=== PATIENT | female | born 1980 | race African-American/Black ===

== ENCOUNTER 2017-11-06 17:16 | Emergency (ER) | payer SELFPAY ==
--- OUTSIDE RECORDS SUMMARY | 2017-11-06 17:17 | XMS REPORT ---
:1980 [facility] Address [address] [place] [address] Care Team Providers Name Role Phone UNKNOWN, REFFERING Primary Care Provider Unavailable Problems This patient has no known problems. Allergies, Adverse Reactions, Alerts This patient has no known allergies or adverse reactions. Medications This patient has no known medications. Encounters Start End Encounter Admission Attending Care Care Encounter Date/Time Date/Time Type Type Clinicians Facility Department ID 2017-02-[address] [facility] MED [id number] 20:16:00
[2017-11-06 18:36] LABS: Potassium 3.5 mEq/L (3.6-5.0); Protime INR 0.97
[2017-11-06 18:38] LABS: Absolute Lymphocytes (CBC) 1.4 K/uL (0.7-4.9); Absolute Monocytes 1.2 K/uL (0.1-1.3); Absolute Neutrophil 5.2 K/uL (1.8-8.0); Basophils % 0.8 % (0-1.3); Eosinophils % 9.2 % (0-4.4); Hematocrit 36.8 % (36.0-45.0); MCV 78.7 fL (80-100); MPV 8.4 fL (7.6-11.3); Monocytes % 13.5 % (3.3-12.3); RBC Red Blood Cell Count 4.68 M/uL (3.86-4.86)
--- NOTE | 2017-11-06 19:04 | RAD REPORT ---
EXAM DESCRIPTION: RAD - Chest Single View - 11/06/2017 6:30 pm CLINICAL HISTORY: Chest pain COMPARISON: June 2017 TECHNIQUE: AP portable chest image was obtained 1826 hours . FINDINGS: Lungs are clear. Heart and vasculature are normal. No measurable pleural effusion and no p neumothorax. No gross bony abnormality seen. No acute aortic findings suspected. IMPRESSION: No acute cardiopulmonary process. No significant change from comparison.
[2017-11-06 19:16] LABS: Urine Blood NEGATIVE (NEG); Urine Glucose NEGATIVE (NEG); Urine Protein 1+ (NEG)
--- NOTE | 2017-11-06 20:08 | EKG ---
Test Date: 2017-11-06 Test Time: 18:57:08 Human Resources Executive Assistant: TEDDY MEASUREMENT RESULTS: Intervals: Rate: 93 NH: 178 QRSD: 90 QT: 374 QTc: 465 [place]: P: 58 NH: 178 QRS: 49 T: 37 INTERPRETIVE STATEMENTS: Normal sinus rhythm Normal ECG Compared to ECG 06/03/2017 22:42:38 No significant changes Electronically Signed On 11-06-17 20:07:39 CDT by Jorge Harden
[2017-11-06] MEDS ORDERED: KETOROLAC 30 MG/ML INJ ONE (20:36)
--- NOTE | 2017-11-06 20:49 | RAD REPORT ---
EXAM DESCRIPTION: VAS - Extrem Venous W Compress Germán - 11/06/2017 8:23 pm CLINICAL HISTORY: Leg pain and swelling COMPARISON: None. TECHNIQUE: Real-time sonographic evaluation of the bilateral lower extremity deep venous systems was performed. FINDINGS: Normal compressibility, flow augmentation, phasic flow and spontaneous flow are identified in the left and right lower extremity deep venous systems. No intraluminal filling defects seen. IMPRESSION: No DVT in either lower extremity.
--- NOTE | 2017-11-06 20:52 | EDPHYS ---
Physician Documentation [facility] Name: Nya Keller Age: 37 yrs Sex: Female : 1980 Arrival Date: 11/06/2017 Time: 17:19 Bed 20 Private MD: ED Physician Trent Mike HPI: 11/06 19:00 This 37 yrs old Black Female presents to ER via Ambulatory with complaints of Right Leg pm1 Pain and Swelling. 19:00 The patient presents with pain, that is acute. The complaints affect the right pm1 quadriceps. Context: The problem was sustained at home, resulted from an unknown cause, the patient can fully bear weight, the patient is able to ambulate, Problem is a result from a previous injury: No. Onset: The symptoms/episode began/occurred today. Modifying factors: The symptoms are alleviated by nothing. the symptoms are aggravated by movement, Palpation. Associated signs and symptoms: Pertinent negatives. Treatment prior to arrival includes: no previous treatment. Severity of symptoms: in the emergency department the symptoms are unchanged. The patient has not recently seen a physician. Patient presenting today with complaint of right thigh pain that started this morning along with bilateral lower extremity swelling. Patient currently taking HCTZ for her pedal edema but states that it was well controlled until this morning when she woke up with the right thigh pain and bilateral lower extremity swelling. Patient reports "a little bit of chest pain and shortness of breath" that started this morning also. 19:00 Has a history of chronic back pain. At onset of right thigh pain she had her chronic pm1 back pain flare up. Lower back pain has resolved but right thigh pain present. 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 - Social history:: Smoking status: Patient/guardian denies using tobacco. ROS: 19:00 Constitutional: Negative for fever, chills, and weight loss, Eyes: Negative for injury, pm1 pain, redness, and discharge, ENT: Negative for injury, pain, and discharge, Neck: Negative for injury, pain, and swelling, Abdomen/GI: Negative for abdominal pain, nausea, vomiting, diarrhea, and constipation, Back: Negative for injury and pain, : Negative for injury, bleeding, discharge, and swelling, MS/Extremity: Negative for injury and deformity, Skin: Negative for injury, rash, and discoloration. 19:00 Cardiovascular: Positive for chest pain, edema, Negative for palpitations. 19:00 Respiratory: Positive for shortness of breath, Negative for cough. Exam: 19:06 Constitutional: This is a well developed, well nourished patient who is awake, alert, pm1 and in no acute distress. Head/Face: Normocephalic, atraumatic. Eyes: Pupils equal round and reactive to light, extra-ocular motions intact. Lids and lashes normal. Conjunctiva and sclera are non-icteric and not injected. Cornea within normal limits. Periorbital areas with no swelling, redness, or edema. Neck: Trachea midline, no thyromegaly or masses palpated, and no cervical lymphadenopathy. Supple, full range of motion without nuchal rigidity, or vertebral point tenderness. No Meningismus. 19:06 Respiratory: Lungs have equal breath sounds bilaterally, clear to auscultation and percussion. No rales, rhonchi or wheezes noted. No increased work of breathing, no retractions or nasal flaring. 19:06 Back: No spinal tenderness. No costovertebral tenderness. Full range of motion. Skin: Warm, dry with normal turgor. Normal color with no rashes, no lesions, and no evidence of cellulitis. 19:06 Chest/axilla: Inspection: normal, Palpation: crepitus, is not appreciated, tenderness, that is mild, of the anterior aspect of left upper chest, that totally reproduces the patient's complaints. 19:06 Cardiovascular: Rate: normal, Rhythm: regular, Edema: pedal edema, that is mild. 19:06 Musculoskeletal/extremity: Extremities: grossly normal except: noted in the lateral aspect of right thigh: tenderness, There is no evidence of decreased ROM, deformity, ROM: no acute changes, Circulation is intact in all extremities. 19:06 Neuro: Orientation: is normal, Motor: is normal, moves all fours, Sensation: is normal, no obvious gross deficits. Vital Signs: 17:41 BP 112 / 89; Pulse 99; Resp 18; Temp 97.8; Pulse Ox 98% on R/A; Weight 149.69 kg; ph Height 5 ft. 7 in. (170.18 cm); Pain 10/10; 18:47 BP 117 / 96; Pulse 92; Resp 14; Pulse Ox 97% on R/A; aj1 20:03 BP 130 / 96; Pulse 90; Resp 18; Pulse Ox 97% on R/A; aj1 21:20 BP 107 / 83; Pulse 95; Resp 18; Pulse Ox 99% ; aj1 17:41 Body Mass Index 51.68 (149.69 kg, 170.18 cm) ph MDM: 17:41 Patient medically screened. pm1 19:09 Data reviewed: vital signs. Data interpreted: Pulse oximetry: on room air is 97 %. pm1 Interpretation: normal. 20:50 Counseling: I had a detailed discussion with the patient and/or guardian regarding: the pm1 historical points, exam findings, and any diagnostic results supporting the discharge/admit diagnosis, lab results, radiology results, the need for outpatient follow up, to return to the emergency department if symptoms worsen or persist or if there are any questions or concerns that arise at home. 11/06 17:58 Order name: Basic Metabolic Panel pm1 11/06 17:58 Order name: BNP pm1 11/06 17:58 Order name: CBC with Diff pm1 11/06 17:58 Order name: PT-INR pm1 11/06 17:58 Order name: Ptt, Activated pm1 11/06 17:58 Order name: Troponin (emerg Dept Use Only) pm1 11/06 18:36 Order name: Basic Metabolic Panel; Complete Time: 19:27 EDMS 11/06 18:43 Order name: Protime (+INR); Complete Time: 19:27 EDMS 11/06 18:43 Order name: PTT, Activated Partial Thromb; Complete Time: 19:27 EDMS 11/06 18:44 Order name: CBC with Automated Diff; Complete Time: 19:27 EDMS 11/06 18:45 Order name: Troponin (Emerg Dept Use Only); Complete Time: 19:27 EDMS 11/06 18:47 Order name: Urine Dipstick--Ancillary (enter results) bd 11/06 18:47 Order name: Urine --Ancillary (enter results) bd 11/06 19:10 Order name: BNP B-Type Natriuretic Peptide; Complete Time: 19:27 EDMS 11/06 17:58 Order name: XRAY Chest (1 view) pm11/06 17:58 Order name: EKG; Complete Time: 17:59 pm1 11/06 17:58 Order name: Cardiac monitoring; Complete Time: 18:55 pm1 11/06 17:58 Order name: EKG - Nurse/Tech; Complete Time: 18:55 pm1 11/06 17:58 Order name: IV Saline Lock; Complete Time: 18:10 pm1 11/06 17:58 Order name: Labs collected and sent; Complete Time: 18:10 pm1 11/06 17:58 Order name: O2 Per Protocol; Complete Time: 18:55 pm1 11/06 17:59 Order name: O2 Sat Monitoring; Complete Time: 18:55 pm1 11/06 17:59 Order name: Urine Dipstick-Ancillary (obtain specimen); Complete Time: 18:55 pm1 11/06 17:59 Order name: US Extrem Venous W Compression Germán pm1 11/06 19:04 Order name: RAD; Complete Time: 19:27 EDMS 11/06 19:16 Order name: Urine --Ancillary; Complete Time: 19:27 EDMS 11/06 19:16 Order name: Urine Dipstick-Ancillary; Complete Time: 19:27 EDMS 11/06 20:49 Order name: VAS; Complete Time: 20:53 EDMS Administered Medications: 20:29 Drug: TORadol 30 mg Route: IVP; Site: right forearm; aj1 21:22 Follow up: Response: No adverse reaction aj1 Disposition: 11/06/17 20:51 Discharged to Home. Impression: Chest pain, unspecified, Edema, unspecified - bilateral lower extremity, Low back pain. - Condition is Stable. - Discharge Instructions: Back Pain, Adult, Nonspecific Chest Pain, Edema. - Prescriptions for Tylenol- Codeine #3 300-30 mg Oral Tablet - take 1 tablet by ORAL route every 6 hours As needed; 12 tablet. - Work release form, Medication Reconciliation Form, Thank You Letter form. - Follow up: Emergency Department; When: As needed; Reason: Worsening of condition. Follow up: Private Physician; When: 2 - 3 days; Reason: Recheck today's complaints, Continuance of care, Re-evaluation by your physician. - Problem is new. - Symptoms have improved. Addendum: 11/10/2017 07:28 Co-signature as Attending Physician, Trent Mike MD. [place] Signatures: Dispatcher [employer] Sabina Weaver RN RN aj1 Lorena Rollins RN RN Colin Becerra, AIRCRAFT RIVETER AIRCRAFT RIVETER pm1 Trent Mike MD MD
--- NOTE | 2017-11-06 20:52 | ER ---
Nurse's Notes [facility] Name: Nya Keller Age: 37 yrs Sex: Female : 1980 Arrival Date: 11/06/2017 Time: 17:19 Bed 20 Private MD: Diagnosis: Chest pain, unspecified;Edema, unspecified-bilateral lower extremity;Low back pain Presentation: 11/06 17:37 Presenting complaint: Patient states: " I have had some swelling in both of my legs and ph I have a spot that is numb. I also have had a little bit of chest pain." Edema noted to tamie calves, pt reports numbness in R outer thigh and pain in R leg. Also reports SOB. Transition of care: patient was not received from another setting of care. Onset of symptoms was November 06, 2017. Care prior to arrival: None. 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 - Social history:: Smoking status: Patient/guardian denies using tobacco. Screenin:49 Abuse screen: Denies threats or abuse. Denies injuries from another. Nutritional aj1 screening: No deficits noted. Tuberculosis screening: No symptoms or risk factors identified. 21:21 Fall Risk None identified. aj1 Assessment: 17:49 General: Appears in no apparent distress. uncomfortable, Behavior is calm, cooperative, aj1 appropriate for age. Pain: Complains of pain in lateral aspect of right thigh Pain radiates to right leg Pain currently is 10 out of 10 on a pain scale. Quality of pain is described as numb, pins and needles. Neuro: Level of Consciousness is awake, alert, obeys commands, Oriented to person, place, time, situation, Speech is normal, Facial symmetry appears normal. Cardiovascular: Reports chest pain, shortness of breath, Heart tones S1 S2 present Patient's skin is warm and dry. Edema is 1+ to left ankle and right ankle Rhythm is regular Chest pain is described as mild, quality is aching is located in left anterior chest wall. Respiratory: Airway is patent Respiratory effort is even, unlabored, Respiratory pattern is regular, symmetrical, Breath sounds are coarse in left posterior lower lobe. GI: No signs and/or symptoms were reported involving the gastrointestinal system. : No signs and/or symptoms were reported regarding the genitourinary system. EENT: No signs and/or symptoms were reported regarding the EENT system. Derm: No signs and/or symptoms reported regarding the dermatologic system. Skin is pink, warm \\T\\ dry. normal. Musculoskeletal: No signs and/or symptoms reported regarding the musculoskeletal system. Circulation, motion, and sensation intact. 18:47 Reassessment: Patient appears in no apparent distress at this time. No changes from aj1 previously documented assessment. Patient and/or family updated on plan of care and expected duration. Pain level reassessed. Patient is alert, oriented x 3, equal unlabored respirations, skin warm/dry/pink. 20:03 Reassessment: Patient appears in no apparent distress at this time. No changes from aj1 previously documented assessment. Patient and/or family updated on plan of care and expected duration. Pain level reassessed. Patient is alert, oriented x 3, equal unlabored respirations, skin warm/dry/pink. 21:20 Reassessment: Patient appears in no apparent distress at this time. No changes from aj1 previously documented assessment. Patient and/or family updated on plan of care and expected duration. Pain level reassessed. Patient is alert, oriented x 3, equal unlabored respirations, skin warm/dry/pink. Vital Signs: 17:41 BP 112 / 89; Pulse 99; Resp 18; Temp 97.8; Pulse Ox 98% on R/A; Weight 149.69 kg; ph Height 5 ft. 7 in. (170.18 cm); Pain 10/10; 18:47 BP 117 / 96; Pulse 92; Resp 14; Pulse Ox 97% on R/A; aj1 20:03 BP 130 / 96; Pulse 90; Resp 18; Pulse Ox 97% on R/A; aj1 21:20 BP 107 / 83; Pulse 95; Resp 18; Pulse Ox 99% ; aj1 17:41 Body Mass Index 51.68 (149.69 kg, 170.18 cm) ph ED Course: 17:19 Patient arrived in ED. as 17:31 Colin Becerra, MARJORIE is PHCP. pm1 17:31 Trent Mike MD is Attending Physician. pm1 17:41 Triage completed. ph 17:41 Sabina Lu, RN is Primary Nurse. aj1 17:42 Arm band placed on. ph 17:49 Patient has correct armband on for positive identification. aj1 17:49 No provider procedures requiring assistance completed. aj1 18:29 X-ray completed. Portable x-ray completed in exam room. Patient tolerated procedure la2 well. 18:30 Inserted saline lock: 22 gauge in right forearm, using aseptic technique. Blood aj1 collected. 19:57 Ultrasound completed. Patient tolerated well. Notified MENDER HAND/ISA paulino. sg3 21:21 IV discontinued, intact, bleeding controlled, No redness/swelling at site. Pressure aj1 dressing applied. Administered Medications: 20:29 Drug: TORadol 30 mg Route: IVP; Site: right forearm; aj1 21:22 Follow up: Response: No adverse reaction aj1 Outcome: 20:51 Discharge ordered by MD. pm1 21:21 Discharged to home ambulatory. aj1 21:21 Condition: good 21:21 Discharge instructions given to patient, Instructed on discharge instructions, follow up and referral plans. no drinking with medication, no driving heavy equipment, medication usage, Demonstrated understanding of instructions, follow-up care, medications, Prescriptions given X 1. 21:22 Patient left the ED. aj1 Signatures: Sabina Lu, RN RN aj1 Xin Marion Patricia, RN RN Colin Becerra, MARJORIE MENDER HAND pm1 Kay Cardenas la2 Jacki Buenrostro sg3
== END 2017-11-06 21:22 | disposition home or self-care (01) ==
LOC: ER 17:16
DX: R07.9 Chest pain, unspecified (principal); R60.0 Localized edema; F32.9 Major depressive disorder, single episode, unspecified
CPT/HCPCS: 36415; 71045; 80048; 81003; 81025; 83880; 84484; 85025; 85610; 85730; 93005; 93970; 96374; 99284

== ENCOUNTER 2017-11-13 10:06 | Emergency (ER) | payer SELFPAY ==
--- OUTSIDE RECORDS SUMMARY | 2017-11-13 10:07 | XMS REPORT ---
:1980 [facility] Address [address] [place] [address] Care Team Providers Name Role Phone UNKNOWN, REFFERING Primary Care Provider Unavailable Problems This patient has no known problems. Allergies, Adverse Reactions, Alerts This patient has no known allergies or adverse reactions. Medications This patient has no known medications. Encounters Start End Encounter Admission Attending Care Care Encounter Date/Time Date/Time Type Type Clinicians Facility Department ID 2017-02-18 Inpatient C [facility] MED [id number] 20:16:00
--- NOTE | 2017-11-13 10:23 | EDPHYS ---
Physician Documentation [facility] Name: Nya Keller Age: 37 yrs Sex: Female : 1980 Arrival Date: 11/13/2017 Time: 10:07 Bed 23 Private MD: ED Physician Len Echeverria HPI: 11/13 10:27 This 37 yrs old Black Female presents to ER via Ambulatory with complaints of Cold snw Symptoms, Vomiting. 10:27 The patient or guardian reports airway noise, cough, flu symptoms. Onset: The snw symptoms/episode began/occurred gradually, 5 day(s) ago, and became worse 2 day(s) ago. Modifying factors: the symptoms are aggravated by asthma. Associated signs and symptoms: Pertinent positives: nausea, rhinorrhea, sore throat, vomiting. Severity of symptoms: At their worst the symptoms were moderate. The patient has experienced similar episodes in the past. The patient has not recently seen a physician. using inhaler x 2 days. 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 - Social history:: Smoking status: Patient/guardian denies using tobacco. ROS: 10:26 Constitutional: Negative for chills and weight loss, + fever Eyes: Negative for injury, snw pain, redness, and discharge, ENT: Negative for injury, pain, and discharge, Neck: Negative for injury, pain, and swelling, Cardiovascular: Negative for chest pain, palpitations, and edema. 10:26 Back: Negative for injury and pain, : Negative for injury, bleeding, discharge, and swelling, MS/Extremity: Negative for injury and deformity, Skin: Negative for injury, rash, and discoloration, Neuro: Negative for headache, weakness, numbness, tingling, and seizure. 10:26 Respiratory: Positive for cough, wheezing. 10:26 Abdomen/GI: Positive for nausea and vomiting. Exam: 10:25 Constitutional: This is a well developed, well nourished patient who is awake, alert, snw and in no acute distress. Head/Face: Normocephalic, atraumatic. Eyes: Pupils equal round and reactive to light, extra-ocular motions intact. Lids and lashes normal. Conjunctiva and sclera are non-icteric and not injected. Cornea within normal limits. Periorbital areas with no swelling, redness, or edema. ENT: Nares patent. No nasal discharge, no septal abnormalities noted. Tympanic membranes are normal and external auditory canals are clear. Oropharynx with no redness, swelling, or masses, exudates, or evidence of obstruction, uvula midline. Mucous membranes moist. Neck: Trachea midline, no thyromegaly or masses palpated, and no cervical lymphadenopathy. Supple, full range of motion without nuchal rigidity, or vertebral point tenderness. No Meningismus. Chest/axilla: Normal chest wall appearance and motion. Nontender with no deformity. No lesions are appreciated. Cardiovascular: Regular rate and rhythm with a normal S1 and S2. No gallops, murmurs, or rubs. Normal PMI, no JVD. No pulse deficits. 10:25 Abdomen/GI: Soft, non-tender, with normal bowel sounds. No distension or tympany. No guarding or rebound. No evidence of tenderness throughout. Back: No spinal tenderness. No costovertebral tenderness. Full range of motion. Skin: Warm, dry with normal turgor. Normal color with no rashes, no lesions, and no evidence of cellulitis. MS/ Extremity: Pulses equal, no cyanosis. Neurovascular intact. Full, normal range of motion. Neuro: Awake and alert, GCS 15, oriented to person, place, time, and situation. Cranial nerves II-XII grossly intact. Motor strength 5/5 in all extremities. Sensory grossly intact. Cerebellar exam normal. Normal gait. Psych: Awake, alert, with orientation to person, place and time. Behavior, mood, and affect are within normal limits. 10:25 Constitutional: This is a well developed, obese patient who is awake, alert, and in no acute distress. 10:25 Respiratory: the patient does not display signs of respiratory distress, Respirations: normal, Breath sounds: wheezing: that is moderate, is heard diffusely. Vital Signs: 10:11 BP 134 / 90; Pulse 96; Resp 19; Temp 97.2(TE); Pulse Ox 96% on R/A; Weight 160.57 kg; la1 Height 5 ft. 8 in. (172.72 cm); 10:11 Body Mass Index 53.82 (160.57 kg, 172.72 cm) la1 MDM: 10:12 Patient medically screened. snw 10:26 Data reviewed: vital signs, nurses notes. Data interpreted: Pulse oximetry: on room air snw is 96 %. Interpretation: acceptable. Counseling: I had a detailed discussion with the patient and/or guardian regarding: the historical points, exam findings, and any diagnostic results supporting the discharge/admit diagnosis, the presence of at least one elevated blood pressure reading (>120/80) during this emergency department visit, the need for outpatient follow up, to return to the emergency department if symptoms worsen or persist or if there are any questions or concerns that arise at home. Special discussion: I have referred the patient to see his PCP for further evaluation of high blood pressure. Based on the history and exam findings, there is no indication for further emergent testing or inpatient evaluation. I discussed with the patient/guardian the need to see the primary care provider for further evaluation of the symptoms. I discussed with the patient/guardian the need to see the production planner scheduler for further evaluation of the symptoms. Administered Medications: 10:34 Drug: Rocephin (cefTRIAXone) 1 grams Route: IM; Site: right gluteus; aj 10:53 Follow up: Response: No adverse reaction aj 10:34 Drug: Albuterol 2.5 mg Route: Inhalation; aj 10:34 Drug: Tussionex Pennkinetic ER 5 ml Route: PO; aj 10:53 Follow up: Response: No adverse reaction aj 10:34 Drug: Zofran 4 mg Route: PO; aj 10:53 Follow up: Response: No adverse reaction aj Disposition: 13:45 Co-signature as Attending Physician, Lne Echeverria MD I agree with the assessment and kdr plan of care. Disposition: 11/13/17 10:23 Discharged to Home. Impression: Asthma, Bronchitis, not specified as acute or chronic. - Condition is Stable. - Discharge Instructions: Acute Bronchitis, Fever, Adult, Hypertension, How to Use an Inhaler, Asthma Attack Prevention, Rehydration, Adult. - Prescriptions for Tessalon Perles 100 mg Oral Capsule - take 1 capsule by ORAL route every 8 hours As needed; 15 capsule. Albuterol Sulfate 90 mcg/actuation - inhale 1-2 puff by INHALATION route every 4-6 hours; 1 Inhaler. Zithromax 500 mg Oral Tablet - take 1 tablet by ORAL route once daily for 5 days; 5 tablet. - Work release form, Medication Reconciliation Form, Thank You Letter, Antibiotic Education, Prescription Opioid Use form. - Follow up: Private Physician; When: 2 - 3 days; Reason: Recheck today's complaints, Continuance of care, Re-evaluation by your physician. Follow up: Emergency Department; When: As needed; Reason: Worsening of condition. Signatures: Amy Gatica, RN Len Naik MD MD kdr Therrien, Shelly, TENNIS CENTRE MANAGER-C TENNIS CENTRE MANAGER-Csnw Pavel Santacruz RN RN la1
--- NOTE | 2017-11-13 10:23 | ER ---
Nurse's Notes [facility] Name: Nya Keller Age: 37 yrs Sex: Female : 1980 Arrival Date: 11/13/2017 Time: 10:07 Bed 23 Private MD: Diagnosis: Asthma;Bronchitis, not specified as acute or chronic Presentation: 11/13 10:10 Presenting complaint: Patient states: I have been having a cough, congestion for the la1 last week, started running fever at home yesterday. Vomited x1 today. Transition of care: patient was not received from another setting of care. Onset of symptoms was November 13, 2017. Care prior to arrival: None. 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 - Social history:: Smoking status: Patient/guardian denies using tobacco. Screenin:28 Abuse screen: Denies threats or abuse. Denies injuries from another. Nutritional aj screening: No deficits noted. Tuberculosis screening: No symptoms or risk factors identified. Fall Risk None identified. Assessment: 10:28 General: Appears in no apparent distress. comfortable, obese, Behavior is calm, aj cooperative, appropriate for age. Pain: Denies pain. Neuro: Level of Consciousness is awake, alert, obeys commands, Oriented to person, place, time, situation. Respiratory: Reports cough that is Airway is patent Respiratory effort is even, unlabored, Respiratory pattern is regular, symmetrical. GI: Abdomen is obese, Reports vomiting. Derm: Skin is intact, is healthy with good turgor, Skin is pink, warm \T\ dry. normal. Vital Signs: 10:11 BP 134 / 90; Pulse 96; Resp 19; Temp 97.2(TE); Pulse Ox 96% on R/A; Weight 160.57 kg; la1 Height 5 ft. 8 in. (172.72 cm); 10:11 Body Mass Index 53.82 (160.57 kg, 172.72 cm) la1 ED Course: 10:07 Patient arrived in ED. as 10:10 [facility] Ol[facility]-C [facility] snw 10:10 eLn Echeverria MD is Attending Physician. snw 10:11 Triage completed. la1 10:12 Arm band placed on left wrist. la1 10:28 Amy Gatica, RN is Primary Nurse. aj 10:35 No provider procedures requiring assistance completed. Initial Neb Treatment Given as aj ordered Patient was instructed and evaluated on procedure. Patient did not have IV access during this emergency room visit. 10:53 Patient has correct armband on for positive identification. aj Administered Medications: 10:34 Drug: Rocephin (cefTRIAXone) 1 grams Route: IM; Site: right gluteus; aj 10:53 Follow up: Response: No adverse reaction aj 10:34 Drug: Albuterol 2.5 mg Route: Inhalation; aj 10:34 Drug: Tussionex Pennkinetic ER 5 ml Route: PO; aj 10:53 Follow up: Response: No adverse reaction aj 10:34 Drug: Zofran 4 mg Route: PO; aj 10:53 Follow up: Response: No adverse reaction aj Outcome: 10:23 Discharge ordered by . snw 10:51 Discharged to home ambulatory. aj 10:51 Condition: good 10:51 Discharge instructions given to patient, Instructed on discharge instructions, follow up and referral plans. medication usage, Demonstrated understanding of instructions, follow-up care, medications, Prescriptions given X 3. 10:53 Patient left the ED. aj Signatures: Amy Gatica, RN RN Nissa Goyal FNP-C FNP-Xin Schulz Lee, RN RN la1
[2017-11-13] MEDS ORDERED: ALBUTEROL 2.5 MG/3 ML NEB SOL ONE (10:43)
[2017-11-13] MEDS ORDERED: LIDOCAINE 1% MPF 5 ML VIAL ONE (10:43)
[2017-11-13] MEDS ORDERED: CEFTRIAXONE 1000 MG/VIAL ONE (10:44)
[2017-11-13] MEDS ORDERED: ONDANSETRON 4 MG (ODT) TAB ONE (10:44)
[2017-11-13] MEDS ORDERED: HYDROCODONE/CHLORPHEN 5 ML/OSYR ONE (10:44)
== END 2017-11-13 10:53 | disposition home or self-care (01) ==
LOC: ER 10:06
DX: J40 Bronchitis, not specified as acute or chronic (principal); F41.8 Other specified anxiety disorders; G43.909 Migraine, unspecified, not intractable, without status migrainosus
CPT/HCPCS: 96372; 99284

== ENCOUNTER 2025-01-04 18:48 | Emergency (ER) | payer SELFPAY ==
[2025-01-04] MEDS ORDERED: IPRATROPIUM BROM 0.5MG/2.5ML ONE (19:49)
[2025-01-04] MEDS ORDERED: METHYLPREDNISOLONE 125 MG INJ ONE (19:49)
[2025-01-04] MEDS ORDERED: ALBUTEROL 2.5 MG/3 ML NEB SOL ONE (19:49)
[2025-01-04 19:54] LABS: Basophils % 0.5 % (0-1.3); Eosinophils % 0.1 % (0-4.4); Hematocrit 35.9 % (36.0-45.0); Hemoglobin 11.7 g/dL (12.0-15.0); Lymphocytes % 14.5 % (15.3-44.8); MCHC 32.7 g/dL (32.0-36.0); MCV 76.4 fL (80-100); MPV 7.5 fL (7.6-11.3); Neutrophils % 60.9 % (41.7-73.7); Nucleated Red Blood Cells % 0.1 % (0-0); Platelets 423 thou/uL (152-406)
[2025-01-04 19:55] LABS: Absolute Monocytes 1.7 K/uL (0.1-1.3); Absolute Neutrophil 4.2 K/uL (1.8-8.0)
[2025-01-04 20:02] LABS: PT Prothrombin Time 12.4 SECONDS (10-13.0); PTT, Activated Partial Thromb 26.9 SECONDS (27.2-37.4); Protime INR 1.09
--- NOTE | 2025-01-04 20:16 | RAD REPORT ---
EXAMINATION: TWO VIEW CHEST XR CLINICAL INDICATION: DYSPNEA TECHNIQUE: 2 views of the chest was performed. COMPARISON: No prior exam. FINDINGS: Nonspecific peribronchial thickening without focal consolidation could represent a viral infection or reactive airway disease. The heart is upper limit of normal in size. No displaced fractures evident. IMPRESSION: Findings could represent a viral infection or reactive airway disease.
[2025-01-04 20:24] LABS: Anion Gap 8.6 mEq/L (5.0-15.0); Magnesium 2.1 mg/dL (1.6-2.4); Potassium 3.6 mEq/L (3.5-5.1); Troponin High Sensitivity 3.4 pg/mL (<58.9)
[2025-01-04] MEDS ORDERED: NA CHLORIDE 0.9% 1,000 ML ONE (21:02)
[2025-01-04 21:39] LABS: Band Neutrophils 1 % (0-1); Differential Total Cells Count 100; Lymphocytes 15 % (15-42); Monocytes 20 % (0-10); Platelet Estimate INCR; Segmented Neutrophils 64 % (40-80)
[2025-01-04 21:40] LABS: Blood Morphology Comment NOT SEEN (NOT SEEN)
--- NOTE | 2025-01-04 21:40 | EDPHYS ---
Physician Documentation [facility] Name: Nya Keller Age: 44 yrs Sex: Female : 1980 Arrival Date: 01/04/2025 Time: 18:48 Bed 17 Private MD: ED Physician Jaron Diana HPI: 01/04 19:57 This 44 yrs old Black Female presents to ER via Ambulatory with complaints of Cough, sb4 Wheezing. 19:57 Patient reports cough, nasal drainage, and wheezing for the past couple of days. States sb4 she went to [facility] yesterday, had swabs done that were all negative, but was told it was just a virus. Was prescribed a steroid but did not pick it up. Daughter is concerned because she states that when she goes into these coughing fits, she starts shaking like she is having a seizure. Patient is not aware of this happening. 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 - Infectious Disease History:: Denies. - Social history:: Smoking status: Patient denies any tobacco usage or history of. ROS: 19:57 Constitutional: Positive for fever, sb4 19:57 Respiratory: Positive for cough, wheezing, 19:57 All other systems are negative, Exam: 19:57 Head/Face: Normocephalic, atraumatic. Eyes: Extra-ocular motions intact. Periorbital sb4 areas with no swelling, redness, or edema. ENT: Mucous membranes moist. Cardiovascular: Regular rate and rhythm with a normal S1 and S2. 19:57 Constitutional: The patient appears in no acute distress, alert, awake, obese, 19:57 Respiratory: the patient does not display signs of respiratory distress, Respirations: normal, Breath sounds: wheezing: expiratory is scattered, Vital Signs: 18:59 BP 151 / 101; Pulse 100; Resp 18; Temp 98.3; Pulse Ox 96% on R/A; Weight 147.42 kg; dd2 Height 5 ft. 7 in. ; 20:00 BP 145 / 96; Pulse 95; Resp 19; Pulse Ox 97% on R/A; me1 21:00 BP 154 / 105; Pulse 98; Resp 19; Pulse Ox 96% ; me1 21:54 BP 146 / 90; Pulse 89; Resp 18; Temp 98.2; Pulse Ox 96% ; me1 18:59 Body Mass Index 50.90 (147.42 kg, 170.18 cm) dd2 MDM: 18:55 Medical Screening Exam initiated sb4 19:59 Differential Diagnosis: Bronchitis Influenza Upper Respiratory Infection Asthma sb4 Exacerbation Viral Syndrome Pneumonia. 21:45 Data reviewed: vital signs, nurses notes, lab test result(s), EKG, radiologic studies, sb4 and as a result, I will discharge patient. Counseling: I had a detailed discussion with the patient and/or guardian regarding the historical points, exam findings, and any diagnostic results supporting the discharge/admit diagnosis, the presence of at least one elevated blood pressure reading (>120/80) during this emergency department visit, lab results, radiology results, the need for outpatient follow up, for definitive care, to return to the emergency department if symptoms worsen or persist or if there are any questions or concerns that arise at home. ED course: Patient already has prescriptions for steroids and nebulizer treatments that she has not picked up yet at the pharmacy. States she does not need a new prescription. She will pick them up tomorrow morning. Regarding the tremors, I instructed her to follow-up with neurology regarding this issue. States it may resolve when her infection clears up. Her tremor was witnessed by RN who stated that it was most definitely not any seizure-like activity, as patient was awake alert and answering questions the entire time. 01/04 19:35 Order name: BMP; Complete Time: 20:28 sb4 01/04 19:35 Order name: CBC with Diff; Complete Time: 21:40 sb4 01/04 19:35 Order name: Magnesium; Complete Time: 20:28 sb4 01/04 19:35 Order name: NT PRO-BNP; Complete Time: 20:28 sb4 01/04 19:35 Order name: PT-INR; Complete Time: 20:06 sb4 01/04 19:35 Order name: Ptt, Activated; Complete Time: 20:06 sb4 01/04 19:35 Order name: Troponin HS; Complete Time: 20:28 sb4 01/04 21:40 Order name: Manual Differential; Complete Time: 21:40 EDMS 01/04 19:35 Order name: XRAY Chest Pa And Lat (2 Views); Complete Time: 20:17 sb4 01/04 19:35 Order name: Cardiac monitoring; Complete Time: 19:56 sb4 01/04 19:35 Order name: IV Saline Lock; Complete Time: 19:47 sb4 01/04 19:35 Order name: Labs collected and sent; Complete Time: 19:47 sb4 01/04 19:35 Order name: O2 Per Protocol; Complete Time: 19:40 sb4 01/04 19:35 Order name: O2 Sat Monitoring; Complete Time: 19:40 sb4 01/04 20:02 Order name: EKG - Nurse/Tech; Complete Time: 20:06 sb4 EC:02 Rate is 97 beats/min. Rhythm is regular, Normal Sinus Rhythm. FL interval is normal at sb4 168 msec. QRS interval is normal at 80 msec. QT interval is normal at 358 msec. No Q waves. T waves are Normal. No ST changes noted. Clinical impression: Normal ECG. Interpreted by me. Reviewed by me. Administered Medications: 20:06 Drug: DuoNeb Nebulize (3:1) (2.5 mg - 0.5 mg) 3 ml Nebulizer once Route: Nebulizer; me1 21:08 Follow up: Response: No adverse reaction; Wheezing diminished me1 20:06 Drug: MethylPrednisoLONE IVP 60 mg IVP once Route: IVP; Site: right antecubital; me1 21:08 Follow up: Response: No adverse reaction me1 21:11 Drug: NS 0.9% IV 1000 ml IV at 1 bolus Per protocol; to be given as a bolus over 60 me1 minutes Route: IV; Rate: 1 bolus; Site: right antecubital; 21:54 Follow up: Response: No adverse reaction; IV Status: Completed infusion; IV Intake: me1 1000ml Disposition: 20:14 I was immediately available on-site in the Emergency Department for consultation in the ms3 care of the patient. 21:46 Chart complete. sb4 Disposition Summary: 01/04/25 21:39 Discharge Ordered Notes: Location: Home sb4 Problem: new sb4 Symptoms: have improved sb4 Condition: Stable sb4 Diagnosis - Acute bronchitis, unspecified sb4 - Unspecified asthma with (acute) exacerbation sb4 - Tremor, unspecified sb4 Followup: sb4 - With: Emergency Department - When: As needed - Reason: Trouble breathing, Worsening of condition Followup: sb4 - With: Zion Soriano MD - When: 1 week - Reason: Further diagnostic work-up, Recheck today's complaints, Re-evaluation by your physician Discharge Instructions: - Discharge Summary Sheet sb4 - Tremor sb4 - Acute Bronchitis, Adult, [id number] sb4 - Asthma, Adult, [id number] sb4 Forms: - Patient Portal Instructions sb4 - Leadership Thank You Letter sb4 - Work release form cp4 Signatures: Dispatcher [employer] EDMS Jaron Diana, DO ms3 Preethi Levine PA-C PA-C sb4 Amarilis Stroud, RN RN me1 YUE SANTIZO RN RN dd2
--- NOTE | 2025-01-04 21:40 | ER ---
Nurse's Notes [facility] Name: Nya Keller Age: 44 yrs Sex: Female : 1980 Arrival Date: 01/04/2025 Time: 18:48 Bed 17 Private MD: Diagnosis: Acute bronchitis, unspecified;Unspecified asthma with (acute) exacerbation;Tremor, unspecified Presentation: 01/04 18:59 Chief complaint: Patient states: HAS HAD A COUGH X3 DAYS AND REPORTS THAT HER DAUGHTER dd2 SAID SHE PASSES OUT WHEN SHE COUGHS AND 'SHAKES'. PT REPORTS SHE DOESN'T KNOW WHAT HAPPENS, SHE JUST WAKES UP. REPORTS SHE WENT TO [place] YESTERDAY AND WAS TOLD IT WAS VIRAL. Coronavirus screen: At this time, the client does not indicate any symptoms associated with coronavirus-19. Ebola Screen: No symptoms or risks identified at this time. Initial Sepsis Screen: Does the patient meet any 2 criteria? No. Patient's initial sepsis screen is negative. Does the patient have a suspected source of infection? No. Patient's initial sepsis screen is negative. Risk Assessment: Do you want to hurt yourself or someone else? Patient reports no desire to harm self or others. Onset of symptoms is unknown. 18:59 Method Of Arrival: Ambulatory dd2 18:59 Acuity: CASSY 3 dd2 Triage Assessment: 19:03 General: Appears in no apparent distress. Behavior is calm, cooperative, appropriate dd2 for age. Pain: Denies pain. EENT: Reports nasal discharge that is watery. Respiratory: Reports cough that is dry, hacking, Airway is patent Respiratory effort is even, unlabored, Respiratory pattern is regular, symmetrical. 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 - Infectious Disease History:: Denies. - Social history:: Smoking status: Patient denies any tobacco usage or history of. Screenin:30 [facility] ED Fall Risk Assessment (Adult) History of falling in the last 3 months, me1 including since admission No falls in past 3 months (0 pts) Confusion or Disorientation No (0 pts) Intoxicated or Sedated No (0 pts) Impaired Gait No (0 pts) Mobility Assist Device Used Yes (1 pt) Altered Elimination No (0 pt) Score/Fall Risk Level 0 - 2 = Low Risk Maintained a safe environment, Provided non-skid footwear, Hourly rounding (assess needs \T\ fall precautionary measures) done. Abuse screen: Denies threats or abuse. Nutritional screening: No deficits noted. Tuberculosis screening: No symptoms or risk factors identified. Assessment: 19:30 General: Appears ill, well groomed, well developed, well nourished, Behavior is calm, me1 cooperative, appropriate for age, Reports HAS HAD A COUGH X3 DAYS AND REPORTS THAT HER DAUGHTER SAID SHE PASSES OUT WHEN SHE COUGHS AND 'SHAKES'. PT REPORTS SHE DOESN'T KNOW WHAT HAPPENS, SHE JUST WAKES UP. REPORTS SHE WENT TO [place] YESTERDAY AND WAS TOLD IT WAS VIRAL. Pain: Denies pain. Neuro: Level of Consciousness is awake, alert, obeys commands, Oriented to person, place, time, situation, Appropriate for age. Cardiovascular: Patient's skin is warm and dry. Respiratory: Reports cough that is persistent Airway is patent Respiratory effort is even, unlabored, Respiratory pattern is regular, symmetrical. GI: No signs and/or symptoms were reported involving the gastrointestinal system. : No signs and/or symptoms were reported regarding the genitourinary system. EENT: No signs and/or symptoms were reported regarding the EENT system. Derm: Skin is intact, is healthy with good turgor, Skin is pink, warm \T\ dry. Musculoskeletal: No signs and/or symptoms reported regarding the musculoskeletal system. Vital Signs: 18:59 BP 151 / 101; Pulse 100; Resp 18; Temp 98.3; Pulse Ox 96% on R/A; Weight 147.42 kg; dd2 Height 5 ft. 7 in. ; 20:00 BP 145 / 96; Pulse 95; Resp 19; Pulse Ox 97% on R/A; me1 21:00 BP 154 / 105; Pulse 98; Resp 19; Pulse Ox 96% ; me1 21:54 BP 146 / 90; Pulse 89; Resp 18; Temp 98.2; Pulse Ox 96% ; me1 18:59 Body Mass Index 50.90 (147.42 kg, 170.18 cm) dd2 ED Course: 18:51 Patient arrived in ED. cj3 18:51 Preethi Levine [facility]. sb4 18:51 Jaron Diana DO is Attending Physician. sb4 19:03 Triage completed. dd2 19:03 Arm band placed on right wrist. dd2 19:21 Amarilis Stroud, RN is Primary Nurse. me1 19:30 Patient has correct armband on for positive identification. Bed in low position. Call me1 light in reach. Side rails up X 1. Provided Education on: POC. Verbalized understanding.. Client placed on continuous cardiac and pulse oximetry monitoring. NIBP monitoring applied. Pulse ox on. NIBP on. 19:30 No provider procedures requiring assistance completed. me1 19:47 BMP Sent. me1 19:47 CBC with Diff Sent. me1 19:47 Magnesium Sent. me1 19:47 NT PRO-BNP Sent. me1 19:47 PT-INR Sent. me1 19:47 Ptt, Activated Sent. me1 19:47 Troponin HS Sent. me1 19:47 Initial lab(s) drawn, by or, sent to lab. Inserted saline lock: 20 gauge in right me1 antecubital area, using aseptic technique. 20:06 EKG done, by ED staff, reviewed by Preethi Levine PA-C. me1 20:11 XRAY Chest Pa And Lat (2 Views) In Process Unspecified. EDMS 21:38 Zion Soriano MD is Referral Physician. sb4 22:12 intact, bleeding controlled, No redness/swelling at site. Pressure dressing applied. cp4 Administered Medications: 20:06 Drug: DuoNeb Nebulize (3:1) (2.5 mg - 0.5 mg) 3 ml Nebulizer once Route: Nebulizer; me1 21:08 Follow up: Response: No adverse reaction; Wheezing diminished me1 20:06 Drug: MethylPrednisoLONE IVP 60 mg IVP once Route: IVP; Site: right antecubital; me1 21:08 Follow up: Response: No adverse reaction me1 21:11 Drug: NS 0.9% IV 1000 ml IV at 1 bolus Per protocol; to be given as a bolus over 60 me1 minutes Route: IV; Rate: 1 bolus; Site: right antecubital; 21:54 Follow up: Response: No adverse reaction; IV Status: Completed infusion; IV Intake: me1 1000ml Medication: 19:30 VIS not applicable for this client. me1 Intake: 21:54 IV: 1000ml; Total: 1000ml. me1 Outcome: 21:39 Discharge ordered by MD. sb4 22:12 Discharged to home ambulatory, cp4 22:12 Condition: stable 22:12 Discharge instructions given to patient, family, Instructed on discharge instructions, follow up and referral plans. Demonstrated understanding of instructions, follow-up care, 22:13 Patient left the ED. cp4 Signatures: Dispatcher [employer] EDMS Preethi Levine, PAJeffC PATahira sb4 Amarilis Stroud RN RN me1 Patito Martins cp4 YUE SANTIZO RN RN dd2 Jyoti Lu cj3 Corrections: (The following items were deleted from the chart) 19:30 18:59 Chief complaint: Patient states: HAS HAD A COUGH X3 DAYS AND REPORTS THAT HER me1 DAUGHTER SAID SHE PASSES OUT WHEN SHE COUGHS AND 'SHAKES'. PT REPORTS SHE DOESN'T KNOW WHAT HAPPENS, SHE JUST WAKES UP. REPORTS SHE WENT TO [place] YESTERDAY AND WAS TOLD IT WAS VIRAL dd2
[2025-01-04 23:41] VITALS: O2SAT 96
[2025-01-04 23:42] VITALS: BP 146/90; TEMP 98.2
== END 2025-01-04 22:13 | disposition home or self-care (01) ==
LOC: ER 18:48
DX: J20.9 Acute bronchitis, unspecified (principal); J45.901 Unspecified asthma with (acute) exacerbation; R25.1 Tremor, unspecified
CPT/HCPCS: 36415; 71046; 80048; 83735; 83880; 84484; 85025; 85610; 85730; 93005; 96361; 96374; 99285; J2919; J7030; J7613; J7644